=== PATIENT | male | born 1995 | race Two or more races ===

== ENCOUNTER 2022-06-22 21:30 | Emergency (ER) | payer BC, OTHER ==
[2022-06-22 21:44] VITALS: BP 99/55; PULSE 70; RESP 16; TEMP 98.4; BMI 23.7
[2022-06-22 22:19] LABS: HEMATOCRIT 38.6 % (35.4-49); MCH 27.3 pg (25.7-33.7); MCHC 33.7 g/dl (32.0-35.9); MEAN CELL VOLUME 80.9 fl (80-96); MEAN PLT VOLUME 8.8 fl (7.5-11.1); PLATELET COUNT 237.2 10^3/uL (134-434); RBC 4.77 10^6/uL (4.00-5.60); RDW 16.9 % (11.9-15.9); WHITE BLOOD COUNT 8.8 10^3/uL (4.0-10.8)
[2022-06-22 22:32] LABS: ALBUMIN 3.7 g/dl (3.4-5.0); ANION GAP 6 MMOL/L (8-16); CHLORIDE 103 mmol/L (98-107); CO2 25 mmol/L (21-32); GLUCOSE,RANDOM 107 mg/dl (74-106); SODIUM 134 mmol/L (136-145)
[2022-06-22 22:34] LABS: ALK PHOS 54 U/L (45-117); BILIRUBIN,TOTAL 0.6 mg/dl (0.2-1); SGOT/AST 17 U/L (15-37); SGPT/ALT 21 U/L (13-61); TOT PROT 6.6 g/dl (6.4-8.2)
[2022-06-22] MEDS ORDERED: IBUPROFEN 600 MG TABLET (FP) PO ONE ×2 (22:42→22:43)
== END 2022-06-22 23:29 | disposition home or self-care (01) ==
LOC: FER 21:30
DX: R07.9 Chest pain, unspecified (principal)
CPT/HCPCS: 36415; 80053; 84484; 85027; 93005; 99284-25

== ENCOUNTER 2023-10-12 13:20 | Emergency (ER) | payer OTHER ==
[2023-10-12 13:27] VITALS: BP 134/74; PULSE 82; RESP 18; TEMP 98.3; BMI 24.8
[2023-10-12] MEDS ORDERED: IBUPROFEN 600 MG TABLET (FP) PO ONE ×2 (14:05→14:11)
== END 2023-10-12 14:37 | disposition home or self-care (01) ==
LOC: JERFT 13:20 → JER 13:20 → JERFT 14:37
DX: M54.50 Low back pain, unspecified (principal); V49.40XA Driver injured in collision with unspecified motor vehicles in traffic accident, initial encounter; Y92.410 Unspecified street and highway as the place of occurrence of the external cause
CPT/HCPCS: 99283-25

== ENCOUNTER 2024-06-25 02:38 | Emergency (ER) | payer BC, OTHER ==
[2024-06-25 02:46] VITALS: BMI 24.4
[2024-06-25] MEDS: ONDANSETRON 4 MG/2 ML VIAL IVPB ONE (04:47)
[2024-06-25] MEDS ORDERED: ONDANSETRON 4 MG/2 ML VIAL ONE (04:48)
[2024-06-25 05:17] LABS: BASO % 0.9 % (0-2.0); EOS % 1.5 % (0-4.5); HEMATOCRIT 41.8 % (35.4-49); HEMOGLOBIN 13.7 GM/dL (11.7-16.9); LYMPH % 27.4 % (8-40); MCH 26.7 pg (25.7-33.7); MCHC 32.9 g/dl (32.0-35.9); MEAN CELL VOLUME 81.1 fl (80-96); MONO % 7.2 % (3.8-10.2); PLATELET COUNT 244 10^3/uL (134-434); RBC 5.15 M/mm3 (4.00-5.60); RDW 15.5 % (11.9-15.9); WHITE BLOOD COUNT 10.8 K/mm3 (4.0-10.0)
[2024-06-25 05:24] LABS: INR 1.16 (0.83-1.09); PROTHROMBIN TIME (PATIENT) 13.1 SEC (9.7-13.0)
[2024-06-25 05:27] LABS: ACTIVATED PTT 34.5 SECONDS (25.2-36.5)
[2024-06-25 05:40] VITALS: BP 111/64; PULSE 62; RESP 12; TEMP 98.3
[2024-06-25 06:01] LABS: POTASSIUM 3.8 mmol/L (3.5-5.1)
[2024-06-25 06:03] LABS: ALBUMIN 3.8 g/dl (3.4-5.0); BLOOD UREA NITROGEN 14.1 mg/dL (7-18); CALCIUM 9.3 mg/dL (8.5-10.1)
[2024-06-25 06:08] LABS: BILIRUBIN,TOTAL 0.6 mg/dL (0.2-1); TOT PROT 7.1 g/dl (6.4-8.2)
[2024-06-25] MEDS ORDERED: POLYETHYLENE GLYCOL (HEALTHYLAX) 3350 17 GM PACKET ONE (07:03)
== END 2024-06-25 07:02 | disposition home or self-care (01) ==
LOC: JER 02:38
PROC: 3E033GC Introduction of Other Therapeutic Substance into Peripheral Vein, Percutaneous Approach (ICD-10-PCS; principal; 2024-06-25)
DX: K62.5 Hemorrhage of anus and rectum (principal); R11.0 Nausea
CPT/HCPCS: 36415; 80053; 82272; 85025; 85610; 85730; 86850; 86900; 86901; 99284-25

== ENCOUNTER 2024-09-07 11:14 | Emergency (ER) | payer BC ==
[2024-09-07 11:47] VITALS: BP 114/66; PULSE 61; RESP 18; TEMP 97.9; BMI 52.9
[2024-09-07 12:35] LABS: BASO % 0.9 % (0-2.0); EOS % 1.1 % (0-4.5); HEMATOCRIT 39.1 % (35.4-49); HEMOGLOBIN 12.5 GM/dL (11.7-16.9); LYMPH % 24.4 % (8-40); MCH 25.6 pg (25.7-33.7); MCHC 32.1 g/dl (32.0-35.9); MEAN CELL VOLUME 79.8 fl (80-96); MEAN PLT VOLUME 8.4 fl (7.5-11.1); NEUT % 64.6 % (42.8-82.8); PLATELET COUNT 282 10^3/uL (134-434); WHITE BLOOD COUNT 8.4 K/mm3 (4.0-10.0)
[2024-09-07 12:49] LABS: POTASSIUM 4.8 mmol/L (3.5-5.1)
[2024-09-07 12:50] LABS: CALCIUM 9.6 mg/dL (8.5-10.1)
[2024-09-07 12:51] LABS: ALBUMIN 3.9 g/dl (3.4-5.0); BLOOD UREA NITROGEN 12.7 mg/dL (7-18); MAGNESIUM 2.1 mg/dL (1.8-2.4)
[2024-09-07 12:56] LABS: BILIRUBIN,TOTAL 0.4 mg/dL (0.2-1); TOT PROT 7.3 g/dl (6.4-8.2)
[2024-09-07 13:00] LABS: INR 1.11 (0.83-1.09); PROTHROMBIN TIME (PATIENT) 12.5 SEC (9.7-13.0)
[2024-09-07 13:03] LABS: ACTIVATED PTT 28.3 SECONDS (25.2-36.5)
== END 2024-09-07 13:47 | disposition home or self-care (01) ==
LOC: JER 11:14
DX: R55 Syncope and collapse (principal); R42 Dizziness and giddiness; R07.89 Other chest pain
CPT/HCPCS: 36415; 71045-TC-FY; 80053; 82962; 83735; 84484; 85025; 85610; 85730; 86850; 86900; 86901; 93005; 93010; 99285-25

== ENCOUNTER 2025-03-12 11:45 | Emergency (ER) | payer BC, OTHER ==
[2025-03-12 12:18] VITALS: BP 120/70; PULSE 98; RESP 18; TEMP 98.6; BMI 25.7
[2025-03-12] MEDS ORDERED: IBUPROFEN 600 MG TABLET (FP) PO ONE ×2 (12:19→12:22)
[2025-03-12] MEDS: IBUPROFEN 600 MG TABLET (FP) PO ONE (12:39)
== END 2025-03-12 14:38 | disposition left against medical advice (07) ==
LOC: JER 11:45
DX: R55 Syncope and collapse (principal); M25.532 Pain in left wrist; M54.50 Low back pain, unspecified; R00.2 Palpitations; R42 Dizziness and giddiness; R11.0 Nausea; H54.7 Unspecified visual loss
CPT/HCPCS: 73110-TC-LT-FY; 82962; 93005; 93010; 99285-25